=== PATIENT | female | born 1965 | race Two or more races ===

== ENCOUNTER 2022-05-29 09:09 | Day surgery (SDC) | payer OTHER ==
[~2022-05-29 09:09] MED LIST: ANASTROZOLE1 MG PO; ATACAND32 MG PO; CIMBALTA PO; CRESTOR20 MG PO; FOLIC A PO; HORIZANT300 MG PO; HYDRALAZINE PO; PLAQUENIL PO; SULFAZINE EC500 MG PO; TOPROL XL100 M1 PO
== END 2022-05-29 15:45 | disposition home or self-care (01) ==
LOC: CIR.AMB 09:09
PROVIDERS: ATTEND Orthopaedic Surgery
DX: M75.111 Incomplete rotator cuff tear or rupture of right shoulder, not specified as traumatic (principal); Z88.0 Allergy status to penicillin; I10 Essential (primary) hypertension